=== PATIENT | female | born 1995 | race Caucasian/White ===

== ENCOUNTER 2017-05-23 09:24 | Emergency (ER) | END 2017-05-23 12:09 | disposition home or self-care (01) ==

== ENCOUNTER 2017-05-26 13:48 | Emergency (ER) | END 2017-05-26 17:37 | disposition home or self-care (01) ==

== ENCOUNTER 2017-05-27 11:15 | Emergency (ER) | END 2017-05-27 14:20 | disposition home or self-care (01) ==